=== PATIENT | male | born 1995 | race Two or more races ===

== ENCOUNTER 2017-05-09 12:43 | Inpatient (IN) | payer MEDICAID ==
[~2017-05-09] VITALS: Ht 167.6 cm; Wt 70.1 kg
[2017-05-09 13:36] LABS: Urine Bilirubin Negative (Negative); Urine Blood Negative /uL (Negative); Urine Color Yellow (Yellow); Urine Glucose Normal (Normal); Urine Ketone 3+ (Negative); Urine Mucus FEW (None Seen); Urine Nitrite Negative (Negative); Urine RBC <1 /hpf (0 - 3); Urine Urobilinogen Normal (Negative)
[2017-05-09 15:24] LABS: Basophils # (auto) 0 uL; Basophils % (auto) 0.4 % (0.0-2.0); CONDITION Y; Eosinophils # (auto) 0 uL; Hemoglobin 16.4 g/dL (13.5-17.5); Lymphocytes # (auto) 0.9 uL; Lymphocytes % (auto) 8.6 % (10.0-50.0); Mean Corpuscular Hemoglobin 28.9 pg (28.0-32.0); Mean Corpuscular Hgb Conc. 33.5 g/dL (32.0-36.0); Mean Corpuscular Volume 86.2 fL (80.0-100.0); Mean Platelet Volume 8.2 fL (7.4-10.4); Monocytes # (auto) 0.6 uL; Monocytes % (auto) 5.6 % (0.0-12.0); Neutrophils # (auto) 9.3 uL; Neutrophils % (auto) 85.4 % (37.0-80.0); Platelet Count (auto) 354 10^3/uL (140-450); Red Cell Distribution Width 13.6 % (11.6-16.0); White Blood Cell 10.9 10^3/uL (4.4-10.8)
[2017-05-09 15:50] LABS: Albumin 4.5 g/dL (3.4-5.0); Alkaline Phosphatase 85 U/L (45-117); Anion Gap 9 (5-15); Aspartate Aminotransferase 13 U/L (15-37); BUN/Creatinine Ratio 16.2; Bilirubin, Total 0.5 mg/dL (0.2-1.0); Blood Urea Nitrogen 12 mg/dL (7-18); Calcium 9.3 mg/dL (8.5-10.1); Carbon Dioxide 26 mmol/L (21-32); Chloride 105 mmol/L (98-107); GFR African American 169 mL/min; GFR Non-African American 139 mL/min; Glucose 92 mg/dL (74-106); Potassium 3.7 mmol/L (3.5-5.1); Sodium 140 mmol/L (136-145); Total Protein 8.7 g/dL (6.4-8.2)
[2017-05-09] MEDS ORDERED: ASPirin 81 mg TAB PO ONE (17:15)
[2017-05-09 18:19] LABS: INR 0.97 (0.9-1.15); Partial Thromboplastin Time 30.8 sec (22.64-33.71); Prothrombin Time 10.6 sec (9.37-12.3)
[2017-05-09] MEDS ORDERED: IOHEXOL 350 MG/ML 100ML IJ ONE (19:24)
[2017-05-09] MEDS ORDERED: LORazepam 0.5 MG TAB PO ONE (21:45)
[2017-05-09] MEDS ORDERED: ONDANSETRON HCL 4 MG/2 ML VIAL IV PRN (21:45)
[2017-05-09] MEDS ORDERED: MORPHINE SULF INJ 2 MG/ML SYRINGE 1ML IV PRN (21:45)
[2017-05-09] MEDS ORDERED: NITROGLYCERIN 0.4 MG SL TAB SL PRN (21:45)
[2017-05-09] MEDS ORDERED: ACETAMINOPHEN 325 MG TAB PO PRN (21:45)
[2017-05-09] MEDS: FAMOTIDINE 20 MG TAB PO SCH (22:09)
[2017-05-10 02:00] VITALS: BP 135/82
[2017-05-10 06:58] LABS: Basophils # (auto) 0 uL; Basophils % (auto) 0.4 % (0.0-2.0); CONDITION Y; Eosinophils # (auto) 0.1 uL; Eosinophils % (auto) 0.9 % (0.0-7.0); Hematocrit 44.2 % (41.0-53.0); Lymphocytes # (auto) 2.3 uL; Lymphocytes % (auto) 25.2 % (10.0-50.0); Mean Corpuscular Hemoglobin 29.1 pg (28.0-32.0); Mean Corpuscular Volume 85.7 fL (80.0-100.0); Mean Platelet Volume 8.1 fL (7.4-10.4); Monocytes # (auto) 0.7 uL; Monocytes % (auto) 7.8 % (0.0-12.0); Neutrophils # (auto) 5.9 uL; Neutrophils % (auto) 65.7 % (37.0-80.0); Platelet Count (auto) 317 10^3/uL (140-450)
[2017-05-10 07:41] LABS: Albumin 3.8 g/dL (3.4-5.0); BUN/Creatinine Ratio 16.2; Bilirubin, Total 0.6 mg/dL (0.2-1.0); Calcium 8.8 mg/dL (8.5-10.1); Potassium 3.8 mmol/L (3.5-5.1); Total Protein 7.6 g/dL (6.4-8.2)
[2017-05-10 08:00] VITALS: BP 120/68
[2017-05-10 09:00] VITALS: BP 120/68
[2017-05-10] MEDS: FAMOTIDINE 20 MG TAB PO SCH ×2 (10:17→22:00)
[2017-05-10 13:00] VITALS: BP 138/74
[2017-05-10] MEDS ORDERED: IBUPROFEN 400 MG TAB PO ONE (14:30)
[2017-05-10 17:00] VITALS: BP 132/68
[2017-05-10] MEDS: LORazepam 0.5 MG TAB PO PRN (22:00)
[2017-05-10 22:13] VITALS: BP 153/86
[2017-05-11 05:27] VITALS: BP 111/78
[2017-05-11 07:02] LABS: Cholesterol 130 mg/dL (< 200); HDL Cholesterol 33 mg/dL (40-59); LDL Cholesterol 93 mg/dL (< 100); Triglycerides 99 mg/dL (< 150)
[2017-05-11 07:48] VITALS: BP 111/57
[2017-05-11 08:00] VITALS: BP 111/57
[2017-05-11] MEDS: FAMOTIDINE 20 MG TAB PO SCH (10:49)
[2017-05-11] MEDS: LORazepam 0.5 MG TAB PO PRN (11:04)
[2017-05-11 11:49] VITALS: BP 134/69
[2017-05-11 12:20] VITALS: BP 134/69
== END 2017-05-11 14:05 | disposition home or self-care (01) | DRG 756 ==
LOC: ER 12:43 → TELE 12:44 → TELE-CENTR 05-10 01:50
PROVIDERS: ADMIT Nurse Practitioner; ATTEND Internal Medicine
DX: F41.1 Generalized anxiety disorder (principal); E66.9 Obesity, unspecified; F17.210 Nicotine dependence, cigarettes, uncomplicated; R79.1 Abnormal coagulation profile; R00.0 Tachycardia, unspecified; R91.1 Solitary pulmonary nodule; F12.10 Cannabis abuse, uncomplicated; Z71.51 Drug abuse counseling and surveillance of drug abuser; Z82.49 Family history of ischemic heart disease and other diseases of the circulatory system; Z68.24 Body mass index [BMI] 24.0-24.9, adult; Z71.6 Tobacco abuse counseling
CPT/HCPCS: 36415; 71010; 71260; 80053; 80061; 80307; 81001; 83735; 84443; 84484; 85025; 85379; 85610; 85730; 93005; 93306; 94761